=== PATIENT | female | born 1960 | race Caucasian/White ===

== ENCOUNTER 2020-10-21 01:05 | Emergency (ER) | payer BC, SELFPAY ==
[2020-10-21] VITALS (25 sets, daily range): BP systolic 102–157; BP diastolic 69–100; PULSE 71–178; RESP 13–22; TEMP 36.3; O2SAT 96–100
--- NOTE | ~2020-10-21 | XR_ITS ---
EXAMINATION: XR chest 1V portable DATE: 10/21/2020 01:33 INDICATION: Right-sided chest pain. TECHNIQUE: frontal view of the chest was obtained. COMPARISON: None FINDINGS: The lungs are clear with no focal airspace opacities, pulmonary edema, pleural effusion or pneumothor ax. The cardiomediastinal silhouette is normal. Mild thoracic dextrocurvature which may be artifactua l due to slight leftward rotation of the patient. IMPRESSION: 1. No acute cardiopulmonary disease. Reviewed, dictated and finalized at location A.
--- NOTE | 2020-10-21 01:17 | PC.NURSE ---
ERP in room at this time.
--- NOTE | 2020-10-21 01:19 | ECG_ITS ---
Measurements Intervals [place] Rate: 171 P: [place]: 0 QRS: 61 QRSD: 114 T: 58 QT: 254 QTc: 429 Interpretive Statements SUPRAVENTRICULAR TACHYCARDIA VENTRICULAR PREMATURE COMPLEXES INTRAVENTRICULAR CONDUCTION DELAY ST ABNORMALITY IN ANTEROLATERAL LEADS- CONSIDER ISCHEMIA OR RATE RELATED ABNORMAL ECG Electronically Signed On 10-21-2020 7:35:33 CDT by Gucci Colindres D.O.
--- NOTE | 2020-10-21 01:20 | ED.ARRPALP ---
HPI - Arrhythmia/Palpitations General Chief Complaint: Arrhythmia/Palpitations Stated Complaint: Heart Racing; sweaty palms Time Seen by Provider: 10/21/20 01:10 Source: RN notes reviewed History of Present Illness HPI narrative: Patient presents to emergency department from home for atrial fibrillation. Patient states she has a history of intermittent atrial fibrillation is followed by Dr. Brito at [facility]. States she is possibly on Cardizem however approximately 2 weeks ago she had had a meniscus surgery and had to stop all her medication for that and never restarted it. She states that she has had a couple short episodes over the past several weeks of feeling she was in A. fib that resolved on their own however this evening starting at 10 PM she had continuous feeling of rapid heart rate she notes mild shortness of breath with that she denies any fevers or chills chest pain or any other symptoms she states she did take a 325 mg aspirin at home is nine current blood thinners Related Data Home Medications Medication Instructions Recorded Confirmed diltiazem HCl PO 10/21/20 Allergies Allergy/AdvReac Type Severity Reaction Status Date / Time codeine AdvReac Seizure Verified 10/21/20 01:13 Review of Systems Review of Systems: Narrative: Gen.: Denies fevers or chills Eyes: Denies eye pain or visual change ENT: Denies congestion Respiratory: Reports shortness of breath CV: See HPI GI: Denies abdominal pain nausea, emesis or diarrhea denies burning, urgency, frequency or hematuria Musculoskeletal: Denies back pain or muscle pain Neuro: Denies numbness, tingling, weakness or focal weakness Skin: Denies rash Except as documented, all other systems reviewed and negative [facility] Past Medical History Medical History (Updated 10/21/20 @ 04:21 by Ajit Wilcox DO) Paroxysmal atrial fibrillation Social History Social History (Updated 10/21/20 @ 02:23 by Ajit Wilcox DO) Smoking status: Never smoker Exam Narrative: Exam Narrative: APPEARANCE: No acute distress, nontoxic, resting in bed EYES: EOMI HEENT: Normocephalic, atraumatic, OMM RESPIRATORY: No respiratory distress Clear to auscultation bilaterally with no rhonchi wheezing or rales. CARDIOVASCULAR: Irregular irregular and tachycardic without murmurs rubs or gallops. ABDOMINAL: Soft, nontender, nondistended, no rebound or guarding MUSCULOSKELETAl: Moves all extremities. No clubbing, cyanosis or edema. NEURO: Awake and alert. Following commands, speech normal, no focal deficits SKIN:: Warm, dry. No rashes lesions or abrasions PSYCHIATRIC: Normal affect/mood, Course Course Emergency Course: Called and discussed with Dr. Isaacs for Dr. Brito presentation work-up request patient restarted on her Cardizem 120 as well as a baby aspirin daily with follow-up as an outpatient agrees with plan for discharge Patient is remained in sinus rhythm since converting on Cardizem Discussed with patient results of workup and diagnosis. Discussed need for follow-up with primary care, proper use of medication, and reasons to return to the emergency department. Patient understands and agrees to current treatment plan patient states she has her Cardizem and baby aspirin at home which she will resume taking Vital Signs Vital signs: Vital Signs Temperature 97.4 F L 10/21/20 01:10 Pulse Rate 168 H 10/21/20 01:10 Respiratory Rate 16 10/21/20 01:10 Blood Pressure 141/78 H 10/21/20 01:10 Pulse Oximetry 100 10/21/20 01:10 Temperature 97.4 F L 10/21/20 01:10 Pulse Rate 73 10/21/20 04:15 Respiratory Rate 16 10/21/20 04:15 Blood Pressure 114/69 10/21/20 03:31 Pulse Oximetry 97 10/21/20 04:15 MDM - Arrhythmia/Palpitations Lab Data Result diagrams: 10/21/20 01:25 10/21/20 01:25 Labs: Lab Results 10/21/20 10/21/20 10/21/20 Range/Units 01:25 01:25 01:25 WBC 9.1 (4.5-10.0) K/mm3 RBC 5
[2020-10-21] MEDS: dilTIAZem HCl INJ 25 MG/5 ML VIAL 10 MG IV PUSH (01:23)
--- NOTE | 2020-10-21 01:31 | ECG_ITS ---
Measurements Intervals [place] Rate: 90 P: 65 TN: 183 QRS: 48 QRSD: 103 T: 38 QT: 358 QTc: 440 Interpretive Statements SINUS RHYTHM BASELINE ARTIFACT- I, II, III, AVF NORMAL ECG Electronically Signed On 10-21-2020 7:36:44 CDT by Gucci Colindres D.O.
[2020-10-21 01:33] LABS: Basophils Percent Auto 0.4 % (0.2-1.2); Eosinophils Absolute Auto 0.2 K/mm3 (0-0.3); Hematocrit 45.8 % (37.0-47.0); Hemoglobin 15.4 g/dL (12.0-15.0); Immature Granulocyte Absolute 0.01 K/mm3 (0.00-0.031); Immature Granulocyte Percent A 0.1 % (0-0.5); Lymphocytes Absolute Auto 3.53 K/mm3 (0.9-3.2); Lymphocytes Percent Auto 38.9 % (18.3-44.2); Mean Corpuscular HGB Conc 33.6 g/dl (32-36); Mean Corpuscular Hemoglobin 30.7 pg (26-34); Mean Corpuscular Volume 91.4 fl (80-100); Monocytes Percent Auto 11.2 % (2.6-8.5); Neutrophils Absolute Auto 4.3 K/mm3 (1.3-6.7); Neutrophils Percent Auto 47.4 % (45.5-73.1); Platelet Count Result 342 k/mm3 (150-375); Red Blood Count 5.01 M/mm3 (4.2-5.4); Red Cell Distribution Width 12.9 % (11.5-14.5); White Blood Count 9.1 K/mm3 (4.5-10.0)
--- NOTE | 2020-10-21 01:44 | PC.NURSE ---
RGEGB to stop cardizem drip.
[2020-10-21 01:45] LABS: Anion Gap 8 mmol/L (8-16); Blood Urea Nitrogen 18 mg/dL (7-17); Calcium 9.3 mg/dL (8.4-10.2); Carbon Dioxide 29 mmol/L (22-30); Chloride 105 mmol/L (98-107); Estimated CRCL calculation 68 ml/min; Estimated Glomerular Filt Rate > 60; Glucose 118 mg/dL (65-105); Partial Thromboplastin Time 25.2 SECONDS (22.3-36.8); Potassium 3.7 mmol/L (3.4-5.0); Sodium 142 mmol/L (137-145)
[2020-10-21 01:57] LABS: Troponin I < 0.012 ng/mL (0.000-0.034)
[2020-10-21 02:05] LABS: INR 0.9; Prothrombin Time 12.9 Seconds (11.1-14.7)
[2020-10-21 04:15] LABS: Troponin I < 0.012 ng/mL (0.000-0.034)
== END 2020-10-21 04:39 | disposition home or self-care (01) ==
PROVIDERS: Emergency Provider Emergency Medicine; PCP Physician Assistant
DX: I48.0 Paroxysmal atrial fibrillation (principal); I47.1 Supraventricular tachycardia; R94.31 Abnormal electrocardiogram [ECG] [EKG]; I45.9 Conduction disorder, unspecified
CPT/HCPCS: 36415; 71045; 80048; 84484; 85025; 85610; 85730; 93005; 96365; 96376; 99284; A9270